=== PATIENT | male | born 1985 | race Caucasian/White ===

== ENCOUNTER 2022-02-12 20:57 | Emergency (ER) | payer OTHER ==
[~2022-02-12] VITALS: Ht 172.7 cm; Wt 104.3 kg
[2022-02-12 21:36] VITALS: BP_SYST 137
--- NOTE | 2022-02-12 21:42 | NUR ---
Patient triaged and placed in waiting room. VSS and patient appears in no acute distress at this time. Accompanied by self, awaiting available bed.
--- NOTE | 2022-02-12 22:31 | NUR ---
ER in triage rm examining patient.
[2022-02-12] MEDS ORDERED: PSEU30TA36 PO (23:25)
[2022-02-13] VITALS: BP_SYST 134
--- NOTE | 2022-02-13 00:06 | NUR ---
Patient given written and verbal discharge instructions and verbalizes understanding. ER MD Call discussed with patient the results and treatment provided. Patient in stable condition. ID arm band removed. Patient educated on pain management and to follow up with PMD. Opportunity for questions provided and answered.
== END 2022-02-13 | disposition home or self-care (01) ==
LOC: SED 20:57
DX: R09.81 Nasal congestion (principal); Z79.899 Other long term (current) drug therapy
CPT/HCPCS: 99282